=== PATIENT | male | born 1970 | race Caucasian/White ===

== ENCOUNTER 2017-01-20 18:11 | Inpatient (IN) | payer BC ==
[~2017-01-20] VITALS: Ht 177.8 cm; Wt 128.8 kg
[2017-01-20] MEDS ORDERED: SODIUM CHLORIDE 0.9% 1,000ML IVBOLUS ONE ×2 (19:00)
[2017-01-20] MEDS ORDERED: ONDANSETRON 2MG/ML, 2ML IVPush ONE (19:00)
[2017-01-20] MEDS ORDERED: HYDROmorphone 1 MG/ML, 1ML IVPush PRN (19:00)
[2017-01-20 19:28] LABS: HEMATOCRIT 43.3 % (39.2-51.8); HEMOGLOBIN 14.6 g/dL (13.7-18.0)
[2017-01-20] MEDS ORDERED: ONDANSETRON 2MG/ML, 2ML ONE ×2 (19:28→23:46)
[2017-01-20] MEDS ORDERED: HYDROmorphone 1 MG/ML, 1ML ONE ×2 (19:28→23:59)
[2017-01-20] MEDS ORDERED: PIPERACILLIN/TAZO/PMX 4.5GM 100 ML IV ONE (19:30)
[2017-01-20] MEDS ORDERED: VANCOMYCIN PER PHARMACY MC PRN ×2 (19:30→22:30)
[2017-01-20] MEDS ORDERED: PHARMACOKINETIC CONSULTATION MC ONE (19:30)
[2017-01-20 19:40] LABS: ASPARTATE AMINO TRANSFERASE 21 U/L (15-37); BLOOD UREA NITROGEN 15 mg/dL (7-18)
[2017-01-20 19:54] LABS: DIFF TOTAL CELLS COUNTED 100 CELL DIFF
[2017-01-20 19:56] LABS: ANISOCYTOSIS 1+
[2017-01-20 19:57] LABS: GIANT PLATELETS 1+; LARGE PLATELETS 1+; POLYCHROMASIA 1+
[2017-01-20] MEDS ORDERED: VANCOMYCIN 2,000 MG in SODIUM CHLORIDE 0.9% 500 ML IV ONE (20:00)
[2017-01-20 20:45] LABS: VERIFY COUNTS? YES
[2017-01-20] MEDS ORDERED: LORazepam 2 MG/ML, 1ML IVPush ONE (21:30)
[2017-01-20] MEDS ORDERED: LORazepam 2 MG/ML, 1ML ONE (21:32)
[2017-01-20] MEDS ORDERED: ONDANSETRON 2MG/ML, 2ML IVPush PRN (22:30)
[2017-01-20] MEDS ORDERED: ENALAPRILAT 1.25 MG/ML, 2ML IVPush PRN (22:30)
[2017-01-20] MEDS ORDERED: POLYETHYLENE GLYCOL 17 GM PACKET PO PRN (22:30)
[2017-01-20] MEDS ORDERED: LORazepam 2 MG/ML, 1ML IV PRN ×4 (23:00)
[2017-01-20] MEDS ORDERED: OMNIPAQUE 350 MG/ML, 100ML BOTTLE ONE (23:07)
[2017-01-20] MEDS ORDERED: FENTANYL PF 100 MCG/2ML ONE (23:36)
[2017-01-20] MEDS ORDERED: EPINEPHRINE 1 MG/ML, 1ML ONE (23:41)
[2017-01-20] MEDS ORDERED: SUCCINYLCHOLINE 20 MG/ML, 10ML ONE (23:46)
[2017-01-20] MEDS ORDERED: METOPROLOL 1 MG/ML, 5ML ONE (23:46)
[2017-01-20] MEDS ORDERED: PROPOFOL 10 MG/ML, 20ML ONE (23:46)
[2017-01-20] MEDS ORDERED: METOCLOPRAMIDE 5 MG/ML, 2ML ONE (23:46)
[2017-01-21] MEDS ORDERED: PROMETHAZINE 25 MG/ML, 1ML IV PRN
[2017-01-21] MEDS ORDERED: EPHEDRINE 50 MG/ML, 1ML IVPush PRN
[2017-01-21] MEDS ORDERED: FENTANYL PF 100 MCG/2ML IV PRN
[2017-01-21] MEDS ORDERED: ALBUTEROL SULFATE 2.5 MG/3 ML NPPB PRN
[2017-01-21] MEDS ORDERED: ACETAMINOPHEN 325 MG TABLET PO PRN
[2017-01-21] MEDS ORDERED: LABETALOL 5MG/ML, 20ML IV PRN
[2017-01-21] MEDS ORDERED: HYDROmorphone 1 MG/ML, 1ML IV PRN
[2017-01-21] MEDS ORDERED: MEPERIDINE/PF 25MG/0.5ML IVPush PRN
[2017-01-21] MEDS ORDERED: ONDANSETRON 2MG/ML, 2ML IVPush PRN
[2017-01-21] MEDS ORDERED: OXYcodone 5 MG/5 ML ORAL.SOL UDC PO PRN
[2017-01-21] MEDS ORDERED: hydrALAzine 20 MG/ML, 1ML IV PRN
[2017-01-21] MEDS ORDERED: LORazepam 2 MG/ML, 1ML IVPush PRN
[2017-01-21] MEDS ORDERED: MIDAZOLAM 1 MG/ML, 2ML IV PRN
[2017-01-21] MEDS ORDERED: FENTANYL PF 100 MCG/2ML ONE (00:03)
[2017-01-21] MEDS ORDERED: BUPIVACAINE/PF 0.5% INFIL ONE (00:12)
[2017-01-21] MEDS ORDERED: EPINEPHRINE 1 MG/ML, 1ML INFIL ONE (00:13)
[2017-01-21] MEDS ORDERED: ACETAMINOPHEN 325 MG TABLET ONE (00:48)
[2017-01-21] MEDS: METOPROLOL 1 MG/ML, 5ML IV PRN ×5 (01:03→01:23)
[2017-01-21] MEDS ORDERED: METOPROLOL 1 MG/ML, 5ML ONE (01:03)
[2017-01-21 02:17] VITALS: BP 114/69
[2017-01-21] MEDS: PIPERACILLIN/TAZO/PMX 4.5GM 100 ML IV SCH ×4 (02:36→20:03)
[2017-01-21] MEDS: ENOXAPARIN 30 MG/0.3 ML SQ SCH ×2 (02:43→14:15)
[2017-01-21 06:10] LABS: HEMATOCRIT 33.8 % (39.2-51.8); HEMOGLOBIN 11.4 g/dL (13.7-18.0); WHITE BLOOD COUNT 18.7 x10^3/uL (3.4-10)
[2017-01-21 06:28] LABS: BLOOD UREA NITROGEN 13 mg/dL (7-18)
[2017-01-21 06:50] VITALS: BP 115/75
[2017-01-21] MEDS: INSULIN ASPART 100 UNITS/ML, PEN SQ-INSULIN SCH ×4 (07:00→20:24)
[2017-01-21] MEDS: MULTIVITAMINS/MINERALS TABLET PO SCH (08:39)
[2017-01-21] MEDS: BACLOFEN 10 MG TABLET PO SCH ×2 (08:39→20:22)
[2017-01-21] MEDS: VANCOMYCIN 2,500 MG in SODIUM CHLORIDE 0.9% 500 ML IV SCH ×2 (10:04→20:58)
[2017-01-21] MEDS: ACETAMINOPHEN 325 MG TABLET PO PRN (12:52)
[2017-01-21 14:38] VITALS: BP 146/89
[2017-01-21] MEDS ORDERED: LACTATED RINGERS 1,000 ML IV SCH (18:30)
[2017-01-21 20:14] VITALS: BP 155/91
[2017-01-21] MEDS: DIPHENOXYLATE/ATROPINE TABLET PO PRN (20:58)
[2017-01-22] MEDS: PIPERACILLIN/TAZO/PMX 4.5GM 100 ML IV SCH ×4 (01:35→21:37)
[2017-01-22 01:40] VITALS: BP 124/79
[2017-01-22] MEDS: INSULIN ASPART 100 UNITS/ML, PEN SQ-INSULIN SCH ×2 (06:02→11:00)
[2017-01-22 06:14] LABS: ASPARTATE AMINO TRANSFERASE 20 U/L (15-37); BLOOD UREA NITROGEN 17 mg/dL (7-18)
[2017-01-22 06:15] LABS: HEMATOCRIT 32.7 % (39.2-51.8); WHITE BLOOD COUNT 10.7 x10^3/uL (3.4-10)
[2017-01-22 07:59] VITALS: BP 138/80
[2017-01-22] MEDS: MORPHINE SULFATE 4 MG/ML, 1ML IVPush PRN ×2 (08:47→21:47)
[2017-01-22] MEDS: ACETAMINOPHEN 325 MG TABLET PO PRN (08:47)
[2017-01-22] MEDS: VANCOMYCIN 2,500 MG in SODIUM CHLORIDE 0.9% 500 ML IV SCH (09:46)
[2017-01-22] MEDS: MULTIVITAMINS/MINERALS TABLET PO SCH (09:50)
[2017-01-22] MEDS: BACLOFEN 10 MG TABLET PO SCH (09:50)
[2017-01-22] MEDS ORDERED: POTASSIUM CHLORIDE 20 MEQ TAB.ER.PRT PO ONE (12:30)
[2017-01-22 14:07] VITALS: BP 142/81
[2017-01-22] MEDS: ENOXAPARIN 40 MG/0.4 ML SQ SCH (14:24)
[2017-01-22] MEDS ORDERED: LACTATED RINGERS 1,000 ML IV SCH (18:30)
[2017-01-22 19:57] VITALS: BP 150/92
[2017-01-22] MEDS: DIPHENOXYLATE/ATROPINE TABLET PO PRN (21:37)
[2017-01-23] MEDS: PIPERACILLIN/TAZO/PMX 4.5GM 100 ML IV SCH ×4 (01:52→22:15)
[2017-01-23 02:46] VITALS: BP 158/92
[2017-01-23 08:04] VITALS: BP 155/90
[2017-01-23] MEDS: MORPHINE SULFATE 4 MG/ML, 1ML IVPush PRN (09:11)
[2017-01-23] MEDS: DIPHENOXYLATE/ATROPINE TABLET PO SCH ×3 (12:20→21:35)
[2017-01-23 13:25] VITALS: BP 138/79
[2017-01-23] MEDS: ENOXAPARIN 40 MG/0.4 ML SQ SCH (15:07)
[2017-01-23] MEDS: VANCOMYCIN 2,000 MG in SODIUM CHLORIDE 0.9% 500 ML IV SCH (19:50)
[2017-01-23 19:57] VITALS: BP 160/100
[2017-01-23] MEDS: METOPROLOL TARTRATE 25 MG TABLET PO SCH (19:57)
[2017-01-24 02:30] VITALS: BP 156/98
[2017-01-24] MEDS: PIPERACILLIN/TAZO/PMX 4.5GM 100 ML IV SCH ×2 (04:38→10:33)
[2017-01-24 06:01] LABS: HEMATOCRIT 38.5 % (39.2-51.8); HEMOGLOBIN 12.9 g/dL (13.7-18.0); WHITE BLOOD COUNT 8.2 x10^3/uL (3.4-10)
[2017-01-24] MEDS: METOPROLOL TARTRATE 25 MG TABLET PO SCH ×2 (06:10→18:13)
[2017-01-24 06:15] LABS: ASPARTATE AMINO TRANSFERASE 44 U/L (15-37); BLOOD UREA NITROGEN 18 mg/dL (7-18)
[2017-01-24 09:59] VITALS: BP 142/92
[2017-01-24] MEDS: DIPHENOXYLATE/ATROPINE TABLET PO SCH ×3 (10:31→20:12)
[2017-01-24 15:45] VITALS: BP 174/103
[2017-01-24] MEDS ORDERED: PHARMACY MAY ADJ FOR RENAL FX MC PRN (16:00)
[2017-01-24] MEDS: SODIUM CHLORIDE 0.9% 1,000 ML IV SCH (16:21)
[2017-01-24] MEDS: ENOXAPARIN 40 MG/0.4 ML SQ SCH (16:21)
[2017-01-24 16:45] VITALS: BP 144/87
[2017-01-24] MEDS: VANCOMYCIN 2,000 MG in SODIUM CHLORIDE 0.9% 500 ML IV SCH (17:15)
[2017-01-24 19:59] VITALS: BP 152/92
[2017-01-25 02:25] VITALS: BP 160/95
[2017-01-25] MEDS: SODIUM CHLORIDE 0.9% 1,000 ML IV SCH ×2 (03:52→11:00)
[2017-01-25 05:37] LABS: BLOOD UREA NITROGEN 20 mg/dL (7-18)
[2017-01-25] MEDS: METOPROLOL TARTRATE 25 MG TABLET PO SCH (06:08)
[2017-01-25 06:35] VITALS: BP 170/101
[2017-01-25] MEDS ORDERED: hydrALAzine 20 MG/ML, 1ML IV ONE (11:30)
[2017-01-25] MEDS ORDERED: HYDR-3241 PO (11:31)
[2017-01-25] MEDS ORDERED: AMOX1TAB64 PO (11:31)
[2017-01-25] MEDS ORDERED: METO25TA35 PO (11:31)
[2017-01-25] MEDS: DIPHENOXYLATE/ATROPINE TABLET PO SCH (11:52)
[2017-01-25 12:02] VITALS: BP 161/106
[2017-01-25] MEDS: ENOXAPARIN 40 MG/0.4 ML SQ SCH (14:00)
[2017-01-25 15:04] VITALS: BP 145/78
== END 2017-01-25 16:07 | disposition home or self-care (01) | DRG 853 ==
LOC: ED 21:42 → EDIP 21:54 → 4NOR 01-21 01:41 → DCLOUNGE 01-25 15:51
PROVIDERS: ADMIT Surgery; ATTEND Hospitalist
PROC: 0J990ZZ Drainage of Buttock Subcutaneous Tissue and Fascia, Open Approach (ICD-10-PCS; principal; 2017-01-21)
PROC: 0D9Q0ZZ Drainage of Anus, Open Approach (ICD-10-PCS; 2017-01-21)
DX: A41.9 Sepsis, unspecified organism (principal); E43 Unspecified severe protein-calorie malnutrition; N17.9 Acute kidney failure, unspecified; E87.1 Hypo-osmolality and hyponatremia; R17 Unspecified jaundice; Z68.41 Body mass index [BMI] 40.0-44.9, adult; K61.2 Anorectal abscess; L02.31 Cutaneous abscess of buttock; D64.9 Anemia, unspecified; E66.9 Obesity, unspecified; I10 Essential (primary) hypertension; E87.6 Hypokalemia; F10.20 Alcohol dependence, uncomplicated; I16.0 Hypertensive urgency; K52.9 Noninfective gastroenteritis and colitis, unspecified; K62.89 Other specified diseases of anus and rectum; R65.20 Severe sepsis without septic shock; Z79.899 Other long term (current) drug therapy; Z80.0 Family history of malignant neoplasm of digestive organs
CPT/HCPCS: 36415; 72193; 80048; 80053; 80061; 80202; 82040; 82962; 83036; 83605; 83735; 84100; 84145; 85025; 87040; 87070; 87075; 87076; 87077; 87205; 87324; 96365; 96368; 96375; J0171; J1170; J1650; J2405; J2543; J2704; J3010; J3370; J3490; Q9967; J0330; J0360; J2060; J2765; J7030; J7040; J7120